=== PATIENT | male | born 1970 ===

== ENCOUNTER 2017-10-07 08:57 | Day surgery (SDC) | payer MEDICAID ==
[2017-07-09 18:48] VITALS: BMI 37.6
[2017-10-07] MEDS ORDERED: Lactated Ringer's 500 ML IV ONE (10:43)
[2017-10-07 11:07] VITALS: O2SAT 97
[2017-10-07] MEDS ORDERED: Propofol 10 mg/ml Inj (20 ML) ONE (12:29)
[2017-10-07 13:03] VITALS: TEMP 98
[2017-10-07 13:15] VITALS: BP 124/78; PULSE 83; RESP 20
== END 2017-10-07 13:16 | disposition home or self-care (01) ==
LOC: H.ENDO 08:57
PROVIDERS: ATTEND Internal Medicine Gastroenterology
DX: K92.2 Gastrointestinal hemorrhage, unspecified (principal); K64.8 Other hemorrhoids; E11.9 Type 2 diabetes mellitus without complications; E78.5 Hyperlipidemia, unspecified; I10 Essential (primary) hypertension; G47.30 Sleep apnea, unspecified; K30 Functional dyspepsia; K29.70 Gastritis, unspecified, without bleeding; R10.13 Epigastric pain; K29.50 Unspecified chronic gastritis without bleeding
CPT/HCPCS: 43239; 45378; 82948; 88305; J2704; J7120